=== PATIENT | female | born 1950 ===

== ENCOUNTER → 2019-12-04 | Outpatient (CLI) | payer MEDICARE, BC ==
[2019-12-04 14:09] LABS: Basophils % (A) 0 %; Eosinophils # (A) 0.1 k/uL (0-0.7); Eosinophils % (A) 2 %; HCT 45.6 % (34.0-46.0); HGB 15.2 gm/dL (11.4-16.0); Lymphocytes # (A) 1.7 k/uL (1.0-4.8); Lymphocytes % (A) 25 %; MCH 31.1 pg (25.0-35.0); MCHC 33.3 g/dL (31.0-37.0); MCV 93.4 fL (80.0-100.0); Mean Platelet Volume 8.6; Monocytes # (A) 0.4 k/uL (0-1.0); Monocytes % (A) 6 %; Neutrophils # (A) 4.6 k/uL (1.3-7.7); Neutrophils % (A) 66 %; Platelet Count 235 k/uL (150-450); RBC 4.89 m/uL (3.80-5.40); RDW 12.8 % (11.5-15.5); WBC 6.9 k/uL (3.8-10.6)
[2019-12-04 14:12] LABS: INR 0.9 (<1.2); Partial Thromboplastin Time 24.8 sec (22.0-30.0); Prothrombin Time 9.5 sec (9.0-12.0)
[2019-12-04 14:14] LABS: Calcium 9.8 mg/dL (8.4-10.2); Potassium 4.8 mmol/L (3.5-5.1)
[2019-12-04 14:25] LABS: Appearance,Urine Clear (Clear); Bilirubin,Urine Negative (Negative); Color,Urine Colorless; Glucose,Urine (UA) Negative (Negative); Ketones,Urine Negative (Negative); Protein,Urine Negative (Negative); Specific Gravity,Urine 1.005 (1.001-1.035)
[2019-12-04 14:26] LABS: Blood,Urine Negative (Negative); Leukocyte Esterase,Urine Negative (Negative); Nitrite,Urine Negative (Negative); Urobilinogen,Urine <2.0 mg/dL (<2.0)
--- NOTE | 2019-12-05 09:20 | XR ---
EXAMINATION TYPE: XR chest 2V DATE OF EXAM: 12/04/2019 COMPARISON: None HISTORY: Presurgery, Z01.818 TECHNIQUE: Frontal and lateral views of the chest are obtained at 3 images. FINDINGS: There is no focal air space opacity, pleural effusion, or pneumothorax seen. The cardiac silhouette size is within normal limits. The osseous structures are intact. There is a mild spinal curvature, there is multilevel spondylosis in the thoracic spine. Prominent lung volumes with flatten ing the hemidiaphragms may be indicative of underlying COPD. Surgical clips are present in the right upper quadrant. IMPRESSION: No acute cardiopulmonary process. Additional findings above.
== END | disposition home or self-care (01) ==
LOC: LABPAT 12:42
PROVIDERS: ATTEND Orthopaedic Surgery Orthopaedic Surgery of the Spine
DX: Z01.818 Encounter for other preprocedural examination (principal); Z01.812 Encounter for preprocedural laboratory examination; M48.00 Spinal stenosis, site unspecified; Z79.01 Long term (current) use of anticoagulants
CPT/HCPCS: 36415; 71046; 80048; 81003; 85025; 85610; 85730; 86850; 86900; 86901; 87070

== ENCOUNTER 2019-12-10 12:02 | Observation (INO) | payer BC ==
[2019-12-04 16:04] VITALS: BMI 32.0
[~2019-12-10 12:02] MED LIST: BACITRACIN 50,000 UNIT, POLYMYXIN B 500,000 UNIT in SODIUM CHLORIDE 0.9% IRRIGATIO 1,00... IRRIGATION ONE; DEXAMETHASONE SOD PHOSPHATE 10 MG/ML 1 ML VIAL IV ONE; LIDOCAINE 1% 20 ML VIAL (10MG/ML) FOR IV START INTRADERMA PRN; MIDAZOLAM 2 MG/2 ML VIAL IV PRN
[2019-12-10] MEDS: LACTATED RINGERS 1,000 ML IV SCH ×3 (12:29→20:48)
[2019-12-10 12:33] LABS: Glucose,Whole Blood 111 mg/dL (75-99)
[2019-12-10] MEDS ORDERED: ONDANSETRON 4 MG/2 ML VIAL IVP ONE (12:35)
[2019-12-10] MEDS ORDERED: NEOSTIGMINE 1 MG/ML 10 ML VIAL ONE (14:25)
[2019-12-10] MEDS ORDERED: fentaNYL (PF) 50 MCG/ML 2 ML AMP ONE (14:25)
[2019-12-10] MEDS ORDERED: PHENYLEPHRINE-0.9% NACL SYG 1 MG/10 ML SYRINGE ONE (14:25)
[2019-12-10] MEDS ORDERED: PROPOFOL 10 MG/ML 20 ML VIAL IV ONE (14:25)
[2019-12-10] MEDS ORDERED: SUCCINYLCHOLINE CHLORIDE 100 MG/5 ML SYR IV ONE (14:25)
[2019-12-10] MEDS ORDERED: HYDROmorphone (PF) 1 MG/ML ONE (14:25)
[2019-12-10] MEDS ORDERED: LIDOCAINE 1% INJ 10MG/ML (20 ML MDV) ONE (14:25)
[2019-12-10] MEDS ORDERED: GLYCOPYRROLATE 0.2 MG/ML 2 ML VIAL ONE (14:25)
[2019-12-10] MEDS ORDERED: MIDAZOLAM 2 MG/2 ML VIAL ONE (14:25)
[2019-12-10] MEDS ORDERED: ROCURONIUM BROMIDE 10 MG/ML 5 ML VIAL IV ONE (14:25)
[2019-12-10] MEDS ORDERED: LIDOCAINE 0.5%-EPI 1:200,000 50 ML VIAL SQ ONE (15:05)
[2019-12-10] MEDS ORDERED: GELATIN SPONGE,ABSORB (LARGE) 1 EACH SPONGE TOPICAL ONE (15:25)
[2019-12-10] MEDS ORDERED: THROMBIN (BOVINE) 5,000 UNIT VIAL TOPICAL ONE (15:25)
[2019-12-10] MEDS ORDERED: HYDROmorphone 0.5 MG/0.5 ML SYRINGE IVP PRN (17:40)
[2019-12-10] MEDS ORDERED: BENZOCAINE/MENTHOL LOZENG 1 EACH LOZENGE MUCOUS MEM PRN (17:40)
[2019-12-10] MEDS ORDERED: MAGNESIUM HYDROXIDE 2,400 MG/10 ML CUP PO PRN (17:40)
[2019-12-10] MEDS ORDERED: HYDROmorphone 1 MG/ML 1 ML SYRINGE IVP PRN (17:40)
[2019-12-10] MEDS ORDERED: ONDANSETRON 4 MG/2 ML VIAL IVP PRN (17:41)
[2019-12-10] MEDS ORDERED: HYDROcodone/APAP 5-325MG 1 EACH TAB PO PRN (17:41)
[2019-12-10] MEDS ORDERED: ALPRAZolam 0.25 MG TAB PO PRN (17:43)
[2019-12-10] MEDS ORDERED: ACETAMINOPHEN TAB 500 MG TAB PO PRN (17:43)
--- NOTE | 2019-12-10 17:55 | P.OP ---
Date of Procedure: 12/10/19 Preoperative Diagnosis: Spinal stenosis L4 5, degenerative disc disease L4 5, lower extremity radiculopathy, herniated nucleus pulposis L4 5, lower extremity weakness, low back pain Postoperative Diagnosis: Same Anesthesia: GETA Pathology: none sent Condition: stable Disposition: PACU Description of Procedure: DESCRIPTION OF PROCEDURE(S): BRIEF OPERATIVE NOTE Preoperative Diagnosis: Spinal stenosis L4 5, degenerative disc disease L4 5, lower extremity radiculopathy, herniated nucleus pulposis L4 5, lower extremity weakness, low back pain Postoperative Diagnosis:Spinal stenosis L4 5, degenerative disc disease L4 5, lower extremity radiculopathy, herniated nucleus pulposis L4 5, lower extremity weakness, low back pain Procedure: Laminectomy and decompression L4 5 Minimally invasive Posterior lateral decompression and facet fusion L4 5 Minimally invasive Transforaminal lumbar interbody fusion for a 360 fusion L4 5 Discectomy for decompression L4 5 Placement of interbody graft L4 5 Harvesting Local autogenous bone grafting Use of computer navigation for placement of pedicle screws Harvesting of bone marrow aspirate via the pedicle and vertebral body of L4 for bone graft supplement Use of Cell Saver Use of bone graft extenders Surgeon: Dr. Napoles Associate Biological Sales: Umberto Hallman is present throughout the entire the case persistence during positioning, dissection, exposure, visualization, and all crucial elements of the case as well as closure. Anesthesia: General anesthesia per Dr. Rouse Estimated blood loss: Approximately 90 mL Complications: None apparent Components implanted: K2M minimally invasive [place] pedicle screw system with use of 4 screws measuring 6.5 x 50 mm and 2 rods measuring 40 mm and [place] interbody cage to go along with the bone graft of bio4 and DBX bone fibers to supplemental local autogenous and bone marrow aspirate graft Disposition: To recovery room in good stable condition. OPERATIVE INDICATIONS The patient has had long-standing issues in their lower back and lower extremities. She was having worsening of her pain in her back and her lower extremities and displayed weakness at her left lower extremity. She is found have significant degenerative changes with stenosis and disc herniation at L4 5 disc with a well with her low back and lower extremity symptoms. The patient has been through conservative treatment. She is not having any lasting benefit despite aggressive conservative treatment. We discussed various treatment options including surgery, and the patient wishes to proceed with surgery We discussed the risk, patient's alternatives and benefits of surgery including but not limited to, risk of bleeding risk of infection, risk of need for further surgery, risk of decreased, loss of motion, muscle function, malunion nonunion, hardware failure, nerve damage, paralysis, heart attack, blindness and . OPERATIVE SUMMARY After discussing all the risks, patient alternatives and benefits at length, the patient elected to proceed with surgical intervention, signed informed consent, and presented for their procedure. The patient was seen and examined in the preoperative holding area and the surgical site was marked. The patient was given antibiotics and brought to the operating room. The patient was sedated and intubated by anesthesia in standard fashion. The patient was positioned on to the operating room table in a prone position on the appropriate frame which was well-padded and well molded. We were careful to pad any bony prominences and pressure points. We were careful to maintain the rhonda ent's cervical spine and good neutral alignment and position throughout. The patient was prepped and draped in a normal standard fashion. An appropriate timeout and keystone protocol performed. We were able to proceed with the surgery. The local wound area was infiltrated with local anesthetic. At the right iliac crest I made 2 small stab incisions and as able place bony pins to set as a base for the navigation licensed veterinary technician device. The pins were drilled into the iliac crest on the right and found to be stable. I was able utilize [employer] navigation device as well as C-arm guidance to establ petros appropriate position over the pedicles bilaterally at the appropriate levels at L4 5. With the appropriate levels confirmed at L4 and L5 was able to make small stab incisions over the appropriate pedicle sites bilaterally. Utilizing C-arm in his house able to establish a Jamshidi needle over the lateral aspect of the pedicle and advanced the trocar into the pedicle being careful not to breech superiorly inferiorly medially or laterally. Position was confirmed regularly with the navigation device and lateral images on C-arm. I was able to establish the trocar into the pedicle appropriately into the posterior aspect of the vertebral body bilaterally at the appropriate levels at L4-L5. This was done at each of the pedicle positions and each of the vertebrae. At L4 on the right I was able to withdraw approximately 20 mL of bone marrow aspirate to be utilized to supplement the bone graft later in the case. I was able place the guidewire into the trocar and into the vertebral body appropriately under C-arm guidance. Dissection was taken down over the wire to the appropriate starting position for the screw placed. The appropriate length screw was chosen, threaded over the guidewire and screwed appropriately into the pedicle and vertebral body under C-arm guidance in excellent alignment and position with good bony purchase. This is done at each of the screw sites at the appropriate levels at L4 and L5 bilaterally. With the screws intact I extended the incision to connect the screw hole sites on the most symptomatic side on the left. I dissected down to establish access over the pars and lamina to the base of the spinous process. I was able to expose the facet joint. The capsule the facet was taken down and showed some facet arthrosis at the joint. I was able to use a combination of curettes and Kerr[place] rongeurs and a high-speed drill to take down the facet joint and do a facetectomy. Partial laminectomy was also performed. I was able get excellent foraminal decompression and central decompression with undermining across midline to perform a laminectomy centrally and contralaterally. I was able get good central decompression. The ligamentum flavum was taken down to further decompress centrally and at bilateral neural foramen. I was able to expose the disc space and visualize the traversing nerve root. Note was made of some disc protrusion at the level causing further compression of the nerve root. I was able to establish a annulotomy at the appropriate level protecting soft tissue and neural structures. There was some adhesion of the nerve root to the chronic disc herniation which I was able to free away and free up the nerve to get freely mobile. Note was made of some severe disc desiccation at the disc. I performed a complete discectomy with accommodation of curettes and rasps and scrapers. I was able get good endplate preparation at the disc space. I sized for the appropriate size interbody spacer protecting the soft tissue and neural structures. The wound was copiously irrigated and suctioned dry. There is no evidence of any dural tear or leak. I was able to pack the disc space with local autogenous bone graft as well as a small amount of bone graft which was also placed into the interbody cage itself. Protecting the soft tissue structures and neural structures I was able place the interbody cage in good alignment and good position with good fit and fill at the interbody space at L4 5. Position was confirmed with C-arm guidance. Good hemostasis maintained. There is no evidence of any dural tear or leak. The wound was irrigated and suctioned dry. With the hardware intact, intraoperative C-arm imaging was again taken which showed good alignment and position of the hardware at the appropriate levels. We were then able to measure, contour and place the rods and appropriate hardware bilaterally. I was able to place capcrews, tighten them down, and torque them with the torque screwdriver appropriately. With this intact I was able to place the local autogenous bone graft with additional bone graft enhancer as necessary into the posterior lateral gutters over the decorticated transverse processes. The remainder of the bone graft was placed over the facet joint on the contralateral side after taking down the facet joint capsule. With the bone graft intact, a stable construct, and good decompression at the appropriate levels, we were able to proceed with closure. Good hemostasis was maintained. There is no evidence of dural tear or leak. The fascia was closed for a watertight closure. he subcuticular tissue was closed with absorbable suture. The wound was cleaned and dried and dressed with the appropriate dressing. The drapes were broken down. The patient was gently rolled back onto their hospital bed being careful to maintain their cervical spine and good neutral alignment and position. They were woken up by anesthesia, extubated, and brought to the recovery room in good stable condition. The patient will be admitted to the hospital for appropriate postoperative care, medical management and monitoring. We will continue to follow them closely about the postoperative course.
[2019-12-10] MEDS: HYDROmorphone 0.5 MG/0.5 ML SYRINGE IVP PRN ×4 (18:04→18:25)
[2019-12-10] MEDS: DIAZEPAM 5 MG TAB PO PRN (18:12)
[2019-12-10 18:14] LABS: Glucose,Whole Blood 102 mg/dL (75-99)
[2019-12-10] MEDS ORDERED: MIDAZOLAM 2 MG/2 ML VIAL IVP ONE (18:40)
--- NOTE | 2019-12-10 18:49 | XR ---
EXAMINATION TYPE: XR lumbar spine 2 or 3V, FL guidance operating room DATE OF EXAM: 12/10/2019 Comparison: None Clinical History: 69-year-old female HARDWARE PLACEMENT Findings: Images during placement of L4-L5 posterior fusion hardware. FLUOROSCOPY Fluoroscopy time of 26 seconds was used during posterior lumbar fusion. 4 image/s document/s the pro cedure. Impression: No acute cardiopulmonary process.
[2019-12-10] MEDS ORDERED: SODIUM CHLORIDE 0.9% 1,000 ML IV ONE ×2 (19:41)
[2019-12-10] MEDS: SODIUM CHLORIDE 0.9% 1,000 ML IV SCH (20:45)
[2019-12-10] MEDS: buPROPion XL 300 MG TAB.ER.24H PO SCH (21:10)
[2019-12-10] MEDS: PRAVASTATIN SODIUM 20 MG TAB PO SCH (21:10)
[2019-12-10 21:22] LABS: Glucose,Whole Blood 111 mg/dL (75-99)
[2019-12-10] MEDS: HYDROcodone/APAP 5-325MG 1 EACH TAB PO PRN (22:38)
[2019-12-11] MEDS: HYDROcodone/APAP 5-325MG 1 EACH TAB PO PRN ×4 (04:28→23:06)
[2019-12-11] MEDS: LEVOTHYROXINE 75 MCG TAB PO SCH (05:26)
[2019-12-11 06:59] LABS: Glucose,Whole Blood 117 mg/dL (75-99)
[2019-12-11] MEDS: SODIUM CHLORIDE 0.9% 1,000 ML IV SCH ×2 (07:25→22:38)
[2019-12-11] MEDS: DIAZEPAM 5 MG TAB PO PRN ×2 (07:34→14:52)
[2019-12-11 07:40] LABS: Calcium 8.5 mg/dL (8.4-10.2); Potassium 4.4 mmol/L (3.5-5.1)
--- NOTE | 2019-12-11 08:22 | P.PN ---
Progress Note - Text Progress Note Date: 12/11/19 Orthopedic Spine: History of present illness: Patient is a pleasant 69-year-old female who is seen and examined at the bedside following posterior lateral decompression and fusion performed yesterday. Patient states they are doing ok postsurgically. She has been able to transfer to a bedside chair. She does have some difficulty with getting comfortable while sitting upright. She states she feels like she has a charley horse in the left lower extremity. She was able to eat breakfast this morning. Currently does not complain of nausea, vomiting, fever, or chills. Patient states pain has been adequately controlled. Her Larose catheter remains intact. Physical Exam Lumbar Fusion: Status post surgical day number 1 Patient is awake, alert, and oriented 3 Vital signs stable Good chest excursion with deep inspiration and expiration Dorsiflexion, plantarflexion, and extensor hallucis longus positive sustained bilaterally No signs or symptoms of DVT; no calf pain; pneumatic cuffs not currently intact bilateral lower extremities Dressing over the surgical sites are dry and intact; no erythema, purulence, or signs of infection One small spot of dried blood over the dressing over the right iliac crest Neurovascularly intact bilaterally lower extremities Assessment: Status post L4-5 minimally invasive posterior lateral decompression and fusion with transforaminal lumbar interbody fusion Low back pain Left lower extremity radiculopathy L4-5 degenerative disc disease L4-5 spinal canal stenosis L4-5 herniated nucleus pulposus Hypertension Plan: 1. Ambulate as tolerated; work with Physical Therapy to increase mobilization 2. Continue pain control with IV and oral medications 3. Dressings to remain intact with silver and Tegaderm; patient may shower with dressings intact 4. We'll plan to discontinue the Larose catheter once patient is able to increase her mobility 5. Medical management can continue to manage patient for patient's other medical diagnoses 6. We will continue to follow the patient closely; if the patient is able to improve over the next 1-2 days we will plan for discharge home over the next couple days 7. Patient can follow-up with Umberto Dozier PA-C or Dr. Noé Napoles at [facility] in 2-3 weeks following discharge
[2019-12-11 08:26] LABS: Basophils % (A) 0 %; Eosinophils % (A) 0 %; HCT 39.2 % (34.0-46.0); HGB 12.7 gm/dL (11.4-16.0); Lymphocytes % (A) 11 %; MCH 30.7 pg (25.0-35.0); MCHC 32.5 g/dL (31.0-37.0); MCV 94.7 fL (80.0-100.0); Mean Platelet Volume 9.1; Monocytes # (A) 0.7 k/uL (0-1.0); Monocytes % (A) 8 %; Neutrophils # (A) 7.2 k/uL (1.3-7.7); Neutrophils % (A) 80 %; Platelet Count 191 k/uL (150-450); RBC 4.14 m/uL (3.80-5.40); RDW 12.9 % (11.5-15.5)
[2019-12-11] MEDS: SENNOSIDES-DOCUSATE SODIUM 1 EACH TAB PO SCH (08:28)
[2019-12-11] MEDS: MULTIVITAMINS, THERA 1 EACH TAB PO SCH (08:28)
[2019-12-11] MEDS: metFORMIN 500 MG TAB PO SCH (08:28)
[2019-12-11] MEDS ORDERED: LISINOPRIL 20 MG TAB PO SCH (09:00)
[2019-12-11] MEDS: LACTATED RINGERS 1,000 ML IV SCH (10:38)
[2019-12-11] MEDS: traMADol 50 MG TAB PO PRN ×2 (11:22→17:13)
[2019-12-11 11:45] LABS: Glucose,Whole Blood 123 mg/dL (75-99)
--- NOTE | 2019-12-11 11:48 | P.CONS ---
History of Present Illness - Reason for Consult Recommendations regarding antidepressant medications and diabetic medicatio - History of Present Illness Patient is a pleasant 69-year-old female admitted for elective posterior lateral decompression and fusion surgery for severe radiculopathy and low back pain. Patient successfully underwent the procedure this decompression and fusion of L4-L5. Patient is comparing of severe pain patient is highly sensitive for opiates will try and use tramadol for pain . Patient denied any fever chills patient is on hydrocodone presently on GWYN inhibitor for hypertension hold off on hydrochlorothiazide at this time. Patient did not pass gas did not move her bowel yet patient has a Larose catheter. Patient denied any cough dysuria Review of Systems REVIEW OF SYSTEMS: CONSTITUTIONAL: No fever, no malaise, no fatigue. HEENT: No recent visual problems or hearing problems. Denied any sore throat. CARDIOVASCULAR: No chest pain, orthopnea, PND, no palpitations, no syncope. PULMONARY: No shortness of breath, no cough, no hemoptysis. GASTROINTESTINAL: No diarrhea, no nausea, no vomiting, no abdominal pain. NEUROLOGICAL: No headaches, no weakness, no numbness. HEMATOLOGICAL: Denies any bleeding or petechiae. GENITOURINARY: Denies any burning micturition, frequency, or urgency. MUSCULOSKELETAL/RHEUMATOLOGICAL: Pain in the surgical site areas ENDOCRINE: Denies any polyuria or polydipsia. The rest of the 14-point review of systems is negative. Past Medical History Past Medical History: Diabetes Mellitus, Hyperlipidemia, Hypertension, Musculoskeletal Disorder, Osteoarthritis (OA), Renal Disease, Skin Disorder, Thyroid Disorder Additional Past Medical History / Comment(s): Hx heart murmur. "Pre-diabetic." Bulging disc back, sciatic, NT Lt foot/leg. Occ eczema hand. History of Any Multi-Drug Resistant Organisms: None Reported Past Surgical History: Appendectomy, Section, Cholecystectomy, Joint Replacement Additional Past Surgical History / Comment(s): Exc lesion RIGHT LEG. TOTAL LT KNEE REPLACEMENT 12-09-14. Pain injections x2 Past Anesthesia/Blood Transfusion Reactions: No Reported Reaction, Family History of Problems w/ Anesthesia Additional Past Anesthesia/Blood Transfusion Reaction / Comm: Sister takes a long time to awaken. 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 Smoking Status: Former smoker Past Alcohol Use History: Occasional Additional Past Alcohol Use History / Comment(s): Quit smoking age 23 Past Drug Use History: None Reported - Past Family History Father Family Medical History: Cancer Medications and Allergies Home Medications Medication Instructions Recorded Confirmed Type ALPRAZolam [Xanax] 0.25 mg PO HS PRN 12/03/14 12/10/19 History Levothyroxine Sodium [Synthroid] 150 mcg PO DAILY 12/03/14 12/10/19 History Acetaminophen [Tylenol Extra 500 mg PO DIRECTED PRN 12/04/19 12/10/19 History Strength] Cinnamon (Unknown Dose) 2 cap PO DAILY 12/04/19 12/10/19 History Enalapril Maleate [Vasotec] 20 mg PO DAILY 12/04/19 12/10/19 History Multivit-Min/FA/Lycopen/Lutein 1 each PO DAILY 12/04/19 12/10/19 History [Centrum Silver Tablet] Pravastatin Sodium [Pravachol] 20 mg PO PC-SUPPER 12/04/19 12/10/19 History Triamcinolone 0.1% Cream [Kenalog 1 applicatio TOPICAL BID PRN 12/04/19 12/10/19 History 0.1% Cream] buPROPion XL [Wellbutrin Xl] 300 mg PO PC-SUPPER 12/04/19 12/10/19 History metFORMIN HCL [Glucophage] 500 mg PO DAILY 12/04/19 12/10/19 History Allergies Allergy/AdvReac Type Severity Reaction Status Date / Time ibuprofen [From Motrin] Allergy SKIN Verified 12/10/19 12:22 FLUSHED, RED SKIN Physical Exam Vitals: Vital Signs Temp Pulse Pulse Resp BP BP Pulse Ox 12/11/19 10:47 97.8 F 61 18 115/56 97 12/11/19 10:40 18 12/11/19 03:03 14 12/11/19 00:53 97.8 F 56 L 16 129/71 99 12/10/19 23:01 71 119/68 12/10/19 22:32 69 135/74 98 12/10/19 22:17 72 121/72 92 L 12/10/19 21:47 78 125/74 12/10/19 21:32 64 148/69 95 12/10/19 21:18 60 134/60 97 12/10/19 21:02 57 L 138/72 99 12/10/19 20:47 58 L 18 155/74 100 12/10/19 20:33 98.1 F 63 18 163/65 97 12/10/19 20:15 64 16 154/78 99 12/10/19 20:00 60 16 166/71 96 12/10/19 19:45 71 16 167/72 100 12/10/19 19:30 75 14 148/67 99 12/10/19 19:15 76 14 152/65 97 12/10/19 19:00 58 L 14 150/66 98 12/10/19 18:45 54 L 12 140/63 99 12/10/19 18:30 56 L 14 143/65 100 12/10/19 18:15 52 L 18 147/65 95 12/10/19 18:00 52 L 18 151/77 98 12/10/19 17:47 97.3 F L 60 14 147/67 98 12/10/19 12:13 96.7 F L 109 H 16 167/73 96 Intake and Output 12/10/19 12/11/19 12/11/19 22:59 06:59 14:59 Intake Total 2126 Output Total 245 300 Balance 1881 -300 Intake: IV 2050 Intake, IV Titration 75 Amount Sodium Chloride 0.9% 1, 75 000 ml @ 75 mls/hr IV . [id number] [facility] Rx#:[id number] Output: Urine 145 300 Estimated Blood Loss 100 Other: Voiding Method Indwelling Catheter Indwelling Catheter Weight 96 kg PHYSICAL EXAMINATION: GENERAL: The patient is alert and oriented x3, not in any acute distress. Well developed, well nourished. HEENT: Pupils are round and equally reacting to light. EOMI. No scleral icterus. No conjunctival pallor. Normocephalic, atraumatic. No pharyngeal erythema. No thyromegaly. CARDIOVASCULAR: S1 and S2 present. No murmurs, rubs, or gallops. PULMONARY: Chest is clear to auscultation, no wheezing or crackles. ABDOMEN: Soft, nontender, nondistended, normoactive bowel sounds. No palpable organomegaly. MUSCULOSKELETAL: Deferred to orthopedic surgery EXTREMITIES: No cyanosis, clubbing, or pedal edema. NEUROLOGICAL: Gross neurological examination did not reveal any focal deficits. SKIN: No rashes. Results CBC & Chem 7: 12/11/19 06:29 12/11/19 06:29 Labs: Abnormal Lab Results - Last 24 Hours (Table) 12/10/19 12/10/19 12/10/19 Range/Units 12:24 18:12 21:21 Sodium (137-145) mmol/L BUN (7-17) mg/dL Glucose (74-99) mg/dL POC Glucose (mg/dL) 111 H 102 H 111 H (75-99) mg/dL 12/11/19 12/11/19 Range/Units 06:29 06:52 Sodium 135 L (137-145) mmol/L BUN 18 H (7-17) mg/dL Glucose 112 H (74-99) mg/dL POC Glucose (mg/dL) 117 H (75-99) mg/dL Assessment and Plan Plan: -Hypertension: Patient is expected to have preoperative hypertension hold of diuretic continued GWYN inhibitor will continue to monitor the blood pressure -Lumbar laminectomy and fusion surgery: Pain management as per primary service DVT prophylaxis per primary service -Type 2 diabetes mellitus patient is on minidose of at goal dose of metformin and metformin is not on to cause hypoglycemia and this will be resumed along with sliding scale -hypothyroidism -Hyperlipidemia -Depression for above-mentioned chronic medical problems patient will be resumed on appropriate home medications
[2019-12-11 16:56] LABS: Glucose,Whole Blood 120 mg/dL (75-99)
[2019-12-11] MEDS: PRAVASTATIN SODIUM 20 MG TAB PO SCH (17:11)
[2019-12-11] MEDS: buPROPion XL 300 MG TAB.ER.24H PO SCH (17:11)
[2019-12-11 20:14] LABS: Glucose,Whole Blood 130 mg/dL (75-99)
[2019-12-12] MEDS: LEVOTHYROXINE 75 MCG TAB PO SCH (05:45)
[2019-12-12 07:07] LABS: Glucose,Whole Blood 153 mg/dL (75-99)
[2019-12-12 07:54] VITALS: BP 115/65; PULSE 67; RESP 19; TEMP 97.7
[2019-12-12] MEDS: MULTIVITAMINS, THERA 1 EACH TAB PO SCH (08:50)
[2019-12-12] MEDS: metFORMIN 500 MG TAB PO SCH (08:50)
[2019-12-12] MEDS: SENNOSIDES-DOCUSATE SODIUM 1 EACH TAB PO SCH (08:50)
[2019-12-12] MEDS: HYDROcodone/APAP 5-325MG 1 EACH TAB PO PRN (08:51)
[2019-12-12] MEDS ORDERED: LISINOPRIL 10 MG TAB PO SCH (09:00)
--- NOTE | 2019-12-12 10:01 | P.DS ---
<Umberto Dozier - Last Filed: 12/12/19 09:55> Providers Expected date of discharge: 12/12/19 - Discharge Diagnosis(es) (1) Spinal stenosis at L4-L5 level Current Visit: Yes Status: Acute (2) Herniated nucleus pulposus, L4-5 Current Visit: Yes Status: Acute (3) Lumbar degenerative disc disease Current Visit: Yes Status: Acute (4) Low back pain Current Visit: Yes Status: Acute (5) Radiculopathy with lower extremity symptoms Current Visit: Yes Status: Acute (6) Lower extremity weakness Current Visit: Yes Status: Acute (7) Status post lumbar spinal fusion Current Visit: Yes Status: Acute (8) Hypertension Current Visit: Yes Status: Acute Hospital Course: This is a pleasant 69-year-old female who presented with L4-5 spinal canal stenosis, herniated nucleus pulposus, and degenerative disc disease with lower extremity radiculopathy, low back pain, lower extremity weaknessbwho failed outpatient conservative therapy. She was admitted for an L4-5 minimally invasive posterior lateral decompression and fusion with transforaminal lumbar interbody fusion. The patient tolerated the procedure well and did well postoperatively. She has had significant improvement as compared yesterday. She has been able to increase her mobility to the restroom. She is using a walker to aid in ambulation. She feels her back pain is better controlled. Her pain is controlled with oral medications. She is no longer experiencing lower extremity radiculopathy which was present prior to surgical intervention. She is very happy with her progress postoperatively. She feels she is ready for discharge today. Condition on day of discharge stable. Patient will be discharged home. Patient was cleared preoperatively for surgery by Dr. Barrientos. Patient currently denies any nausea, vomiting, fever, or chills. Patient is eating and voiding freely without difficulty. Patient may shower with silver and Tegaderm dressing intact. Patient may remove silver and Tegaderm dressing in 3 days and shower without a dressing at that time. Patient should refrain from driving until at least after their first follow-up appointment in the office. Patient should avoid excessive bending, lifting, and twisting; no lifting greater than 10 pounds. Patient may use a walker to aid in ambulation as needed. Patient also has a toilet seat riser at home and a shower chair. She may use these aids as needed. Patient does have a medical history which includes hypertension. MAPS has been reviewed today, 12/12/2019, with an Overall Overdose Risk Score of 110. An "Opiod Start Talking" Form has been signed and placed in the patient's chart. A prescription has been written for Moorhead 5 mg/325 mg 1-2 tabs every 6 hours as needed for pain, dispensed #56. Patient should discontinue extra strength Tylenol while taking Moorhead 5 mg/325 mg. Patient states she has stool softener medications at home. She may take these medications as needed to facilitate a bowel movement. We discussed she should avoid anti-inflammatories over the next 6 weeks postoperatively. Physical Exam on day of discharge: Status post surgical day number 2 Patient is awake, alert, and oriented 3 Vital signs stable Good chest excursion with deep inspiration and expiration Dorsiflexion, plantarflexion, and extensor hallucis longus positive sustained bilaterally No signs or symptoms of DVT; no calf pain; pneumatic cuffs not currently intact bilateral lower extremities Dressing over the surgical sites are dry and intact; no erythema, purulence, or signs of infection One small spot of dried blood over the dressing over the right iliac crest No significant pain with palpation over the surgical sites Neurovascularly intact bilaterally lower extremities Procedures: L4-5 minimally invasive posterior lateral decompression and fusion with transforaminal lumbar interbody fusion Patient Condition at Discharge: Stable Plan - Discharge Summary Discharge Rx Participant: Yes New Discharge Prescriptions: New Hydrocodone/Acetaminophen [Moorhead 5-325] 1 - 2 each PO Q6HR PRN #56 tab PRN Reason: Pain Continue ALPRAZolam [Xanax] 0.25 mg PO HS PRN PRN Reason: Anxiety Levothyroxine Sodium [Synthroid] 150 mcg PO DAILY Multivit-Min/FA/Lycopen/Lutein [Centrum Silver Tablet] 1 each PO DAILY Triamcinolone 0.1% Cream [Kenalog 0.1% Cream] 1 applicatio TOPICAL BID PRN PRN Reason: eczema Pravastatin Sodium [Pravachol] 20 mg PO PC-SUPPER metFORMIN HCL [Glucophage] 500 mg PO DAILY buPROPion XL [Wellbutrin XL] 300 mg PO PC-SUPPER Enalapril Maleate [Vasotec] 20 mg PO DAILY Cinnamon (Unknown Dose) 2 cap PO DAILY Discontinued Acetaminophen [Tylenol Extra Strength] 500 mg PO DIRECTED PRN PRN Reason: Pain Discharge Medication List ALPRAZolam [Xanax] 0.25 mg PO HS PRN 12/03/14 [History] Levothyroxine Sodium [Synthroid] 150 mcg PO DAILY 12/03/14 [History] Cinnamon (Unknown Dose) 2 cap PO DAILY 12/04/19 [History] Enalapril Maleate [Vasotec] 20 mg PO DAILY 12/04/19 [History] Multivit-Min/FA/Lycopen/Lutein [Centrum Silver Tablet] 1 each PO DAILY 12/04/19 [History] Pravastatin Sodium [Pravachol] 20 mg PO PC-SUPPER 12/04/19 [History] Triamcinolone 0.1% Cream [Kenalog 0.1% Cream] 1 applicatio TOPICAL BID PRN 12/04/19 [History] buPROPion XL [Wellbutrin XL] 300 mg PO PC-SUPPER 12/04/19 [History] metFORMIN HCL [Glucophage] 500 mg PO DAILY 12/04/19 [History] Hydrocodone/Acetaminophen [M[place] 5-325] 1 - 2 each PO Q6HR PRN #56 tab 12/12/19 [Rx] Follow up Appointment(s)/[facility]s): [facility] - As Needed Umberto Dozier PAC [PHYSICIAN QUALITY ASSURANCE DIRECTOR] - 12/24/19 10:00 am (Patient may follow-up with Umberto Dozier PA-C or Dr. Noé Napoles at [facility] in 2-3 weeks following discharge. ) Ye Barrientos DO [Primary Care Provider] - 12/19/19 10:45 am Patient Instructions/Handouts: *Surgery [facility] - ([facility]) Lumbar Surgery Discharge Instructions Activity/Diet/Wound Care/Special Instructions: 1. Patient may shower with silver and Tegaderm dressing intact. 2. Patient may remove silver and Tegaderm dressing in 3 days and shower without a dressing at that time. 3. Patient should refrain from driving until at least after their first follow- up appointment in the office. 4. Patient should avoid excessive bending, twisting, and lifting; no lifting greater than 10 pounds 5. Patient may use a walker to aid in ambulation as needed 6. Patient may use a toilet seat riser and shower chair as needed 7. Take medications as prescribed 8. Do not soak in tub <Joycelyn Napoles - Last Filed: 12/12/19 10:14> Providers Date of admission: 12/11/19 14:42 Attending physician: Joycelyn Napoles Pt is seen and examined on day of discharge. agree with above dictation and exam. agree with discharge home today wiht follow up out patient Consults: 12/10/19 17:41 Consult Physician Routine Consulting Provider: Juliana Britton Consult Reason/Comments: Medical management Do you want consulting provider notified?: Yes Primary care physician: Ye Barrientos, DO
--- NOTE | 2019-12-12 11:50 | P.PN ---
Subjective 69-year-old female admitted for elective posterior lateral decompression and fusion surgery for severe radiculopathy and low back pain. Patient successfully underwent the procedure this decompression and fusion of L4-L5. Patient is comparing of severe pain patient is highly sensitive for opiates will try and use tramadol for pain . Patient denied any fever chills patient is on hydrocodone presently on GWYN inhibitor for hypertension hold off on hydrochlorothiazide at this time. Patient did not pass gas did not move her bowel yet patient has a Larose catheter. Patient denied any cough dysuria. 12/12/2019 Patient is clinically doing much better today is being discharged today. As dictated earlier patient doesn't take hydrochlorothiazide at home that dictation is by mistake patient can resume her amlodipine Constitutional: Denied any fatigue denied any fever. Cardio vascular: denied any chest pain, palpitations Gastrointestinal denied any nausea vomiting Pulmonary: Denied any shortness of breath cough Neurologic denied any new focal deficits All inpatient medications were reviewed and appropriate changes in these medications as dictated in the interval history and assessment and plan. Objective - Vital Signs Vital signs: Vital Signs Temp 97.7 F 12/12/19 07:53 Pulse 67 12/12/19 07:53 Resp 19 12/12/19 10:01 BP 115/65 12/12/19 07:53 Pulse Ox 96 12/12/19 07:53 Intake & Output 12/11/19 12/12/19 12/12/19 18:59 06:59 18:59 Intake Total 350 Output Total 700 600 Balance -350 -600 Intake: Intake, IV Titration 350 Amount Sodium Chloride 0.9% 1, 300 000 ml @ 75 mls/hr IV . [id number] GABRIELE Rx#:[id number] ceFAZolin 2 gm In Sodium 50 Chloride 0.9% 50 ml @ 100 mls/hr IVPB Q8H GABRIELE Rx#: [id number] Output: Urine 700 600 Other: Voiding Method Indwelling Catheter Indwelling Catheter Indwelling Catheter # Voids 1 - Exam PHYSICAL EXAMINATION: GENERAL: The patient is alert and oriented x3, not in any acute distress. Well developed, well nourished. HEENT: Pupils are round and equally reacting to light. EOMI. No scleral icterus. No conjunctival pallor. Normocephalic, atraumatic. No pharyngeal erythema. No thyromegaly. CARDIOVASCULAR: S1 and S2 present. No murmurs, rubs, or gallops. PULMONARY: Chest is clear to auscultation, no wheezing or crackles. ABDOMEN: Soft, nontender, nondistended, normoactive bowel sounds. No palpable organomegaly. MUSCULOSKELETAL: Deferred to orthopedic surgery EXTREMITIES: No cyanosis, clubbing, or pedal edema. NEUROLOGICAL: Gross neurological examination did not reveal any focal deficits. SKIN: No rashes. - Labs CBC & Chem 7: 12/11/19 06:29 12/11/19 06:29 Labs: Abnormal Lab Results - Last 24 Hours (Table) 12/11/19 12/11/19 12/12/19 Range/Units 16:52 20:07 07:05 POC Glucose (mg/dL) 120 H 130 H 153 H (75-99) mg/dL Assessment and Plan Plan: -Hypertension: Limited doing well and patient is resumed on amlodipine with well-controlled blood pressure patient can be discharged from medical perspective -Lumbar laminectomy and fusion surgery: Pain management as per primary service -Type 2 diabetes mellitus patient was resumed on metformin -hypothyroidism -Hyperlipidemia -Depression Patient can be discharged from medical perspective
== END 2019-12-12 11:37 | disposition home health service (06) ==
LOC: OR 12:02 → 4SSUR 17:39 → OR 12-11 14:42
PROVIDERS: ADMIT Orthopaedic Surgery Orthopaedic Surgery of the Spine; ATTEND Orthopaedic Surgery Orthopaedic Surgery of the Spine
DX: M48.061 Spinal stenosis, lumbar region without neurogenic claudication (principal); M51.16 Intervertebral disc disorders with radiculopathy, lumbar region; M43.16 Spondylolisthesis, lumbar region; E11.9 Type 2 diabetes mellitus without complications; E78.5 Hyperlipidemia, unspecified; Z79.84 Long term (current) use of oral hypoglycemic drugs; Z79.890 Hormone replacement therapy; Z87.891 Personal history of nicotine dependence; Z96.652 Presence of left artificial knee joint; Z88.6 Allergy status to analgesic agent; F32.9 Major depressive disorder, single episode, unspecified
CPT/HCPCS: 22630; 22853; 20930; 20936; 97116; 97161; 80048; 85025; 72100; G0378 ×2; C1713; J2250; J2710; J0690 ×2; J2405 ×2; J2001; J3010; J1170 ×3; J2370; J0330; J2704; 86850; 86900; 86901